=== PATIENT | male | born 1930 | race African-American/Black ===

== ENCOUNTER 2019-07-02 09:55 | Emergency (ER) | payer OTHER ==
[~2019-07-02] VITALS: Ht 175.3 cm; Wt 90.9 kg
[2019-07-02] MEDS ORDERED: BENA10TA12 PO (10:11)
[2019-07-02] MEDS ORDERED: ATOR20TA86 PO (10:11)
[2019-07-02] MEDS ORDERED: INSLAN SQ (10:11)
[2019-07-02] MEDS ORDERED: METF-445 PO (10:11)
[2019-07-02] MEDS ORDERED: TAMS-1 PO (10:11)
[2019-07-02] MEDS ORDERED: INSU100I15 SQ (10:11)
[2019-07-02] MEDS ORDERED: ACET-2247 PO (10:11)
[2019-07-02] MEDS ORDERED: ACETAMINOPHEN 500 MG TABLET PO ONE (10:15)
[2019-07-02 10:31] LABS: GLUCOSE,POINT OF CARE 211 MG/DL (70-110)
[2019-07-02 11:35] VITALS: BP 137/77
== END 2019-07-02 11:49 | disposition home or self-care (01) ==
LOC: EMS 09:55
DX: S80.01XA Contusion of right knee, initial encounter (principal); E11.9 Type 2 diabetes mellitus without complications; I10 Essential (primary) hypertension; E78.00 Pure hypercholesterolemia, unspecified; Z79.4 Long term (current) use of insulin; Z79.84 Long term (current) use of oral hypoglycemic drugs; W19.XXXA Unspecified fall, initial encounter; Y93.89 Activity, other specified; Y92.89 Other specified places as the place of occurrence of the external cause; Y99.8 Other external cause status

== ENCOUNTER 2021-07-30 11:05 | Emergency (ER) | payer MEDICARE ==
[~2021-07-30] VITALS: Ht 172.7 cm; Wt 81.8 kg
[~2021-07-30 11:05] MED LIST: ACET-2247 PO; AMLO-257 PO; ATOR20TA86 PO; BENA10TA77 PO; IBUP-1506 PO; INSLAN SQ; INSU100I15 SQ; METF-1211 PO; TAMS-1 PO
[2021-07-30 12:24] LABS: BASOPHILS % (AUTO) 0.3 % (0.0-2.0); EOSINOPHILS % (AUTO) 1.7 % (1.0-6.0); HEMATOCRIT 39.3 % (41-53); HEMOGLOBIN 12.9 g/dL (13.5-17.5); LYMPHOCYTES # (AUTO) 3.4 K/uL (1.0-4.8); MEAN CORPUSCULAR HEMOGLOBIN 29.3 pg (26.0-34.0); MEAN CORPUSCULAR HGB CONC 32.9 G/dL (31.0-37.0); MEAN CORPUSCULAR VOLUME 89 fL (80-100); MONOCYTES # (AUTO) 0.5 K/uL (0.1-1.0); MONOCYTES % (AUTO) 5.9 % (2.0-9.0); NEUTROPHILS # (AUTO) 4.7 K/uL (1.8-7.7); NEUTROPHILS % (AUTO) 53.1 % (40.0-70.0); PLATELET COUNT (AUTO) 194 K/uL (150-450); RED BLOOD CELL COUNT(AUTO) 4.42 MIL/uL (4.50-5.90); RED CELL DISTRIBUTION WIDTH 15.1 % (11.5-14.5)
[2021-07-30 12:35] LABS: CALCIUM, TOTAL 9.5 mg/dL (8.8-10.5); CREATININE 1.47 mg/dL (0.60-1.30); POTASSIUM 4.7 mmol/L (3.5-5.1)
[2021-07-30 12:40] LABS: ALBUMIN 3.5 g/dL (3.4-5.0); BILIRUBIN,TOTAL 0.4 mg/dL (0.1-1.0); TOTAL PROTEIN, SERUM 7.6 g/dL (6.4-8.2)
[2021-07-30] MEDS ORDERED: ACETAMINOPHEN 500 MG TABLET PO ONE (14:15)
[2021-07-30 14:25] VITALS: BP 132/74
== END 2021-07-30 16:22 | disposition home or self-care (01) ==
LOC: EMS 11:05
DX: E11.40 Type 2 diabetes mellitus with diabetic neuropathy, unspecified (principal); I10 Essential (primary) hypertension; Z79.84 Long term (current) use of oral hypoglycemic drugs; Z79.4 Long term (current) use of insulin
CPT/HCPCS: 80053; 84484; 85025; 99283